=== PATIENT | female | born 1945 | race Caucasian/White ===

== ENCOUNTER → 2017-06-01 | Outpatient (CLI) | payer OTHER ==
--- NOTE | ~2017-06-01 | 2DMMODE ---
[facility] [address] [place] [address] 2 D/M-MODE ECHOCARDIOGRAM Name: NATHALIE STEWART Room #: REG [facility] [id number] Admission: 06/01/17 Attend Phys: Karla Porras Discharge: Date of : 43 Date of Service: 06/01/17 1207 Report #: [id number] THIS REPORT FOR: //name// APPROVED REPORT Study performed: 06/01/2017 10:06:29 EXAM: Comprehensive 2D, Doppler, and color-flow Echocardiogram Patient Location: Out-Patient Status: routine Other Information Study Quality: Good Indications Hypertension/HDD 2D Dimensions RVDd: 34.47 mm LVEF(%): 77.11 (>50%) IVSd: 9.90 (7-11mm) LVOT Diam: 18.25 (18-24mm) LVDd: 46.05 mm PWd: 9.53 (7-11mm) Ascending Ao: 37.25 (22-36mm) LVDs: 25.00 (25-40mm) Aortic Root: 27.81 mm Maxwell's LVEF: 77.11 % Volumes Left Atrial Volume (Systole) Single Plane 4CH: 44.99 mL Single Plane 2CH: 54.25 mL LA ESV Index: 34.00 mL/m2 Aortic Valve AoV Peak Jovan.: 1.38 m/s AO Peak Gr.: 7.62 mmHg LVOT Max P.37 mmHg LVOT Max V: 1.05 m/s BEV Vmax: 1.98 cm2 Mitral Valve E/A Ratio: 0.7 MV Decel. Time: 221.47 ms MV E Max Jovan.: 0.59 m/s MV A Jovan.: 0.82 m/s MV PHT: 64.23 ms IVRT: 115.34 ms [facility] [place] [address] 2 D/M-MODE ECHOCARDIOGRAM Name: NATHALIE STEWART Room #: [facility] Ivy#: [id number] Admission: 06/01/17 Attend Phys: Karla Porras Discharge: Date of : 43 Date of Service: 06/01/17 1207 Report #: [id number] Pulmonary Valve PV Peak Jovan.: 0.75 m/s PV Peak Gr.: 2.24 mmHg Pulmonary Vein P Vein S: 0.52 m/s P Vein A: 0.31 m/s P Vein D: 0.40 m/s P Vein A Dur.: 124.6 msec P Vein S/D Ratio: 1.30 Tricuspid Valve TR Peak Jovan.: 2.58 m/s RAP Estimate: 5.00 mmHg TR Peak Gr.: 26.53 mmHg PA Pressure: 32.00 mmHg Left Ventricle The left ventricle is normal size. There is normal LV segmental wall motion. There is normal left ventricular wall thickness. The left ventricular systolic function is normal. The left ventricular ejection fraction is within the normal range. LVEF is 60-65%. Grade I - abnormal relaxation pattern. Right Ventricle The right ventricle is normal size. The right ventricular systolic function is normal. Atria The left atrium size is normal. The right atrium size is normal. Aortic Valve The aortic valve is normal in structure. Trace aortic regurgitation. There is no aortic valvular stenosis. Mitral Valve The mitral valve is normal in structure. Trace to mild mitral regurgitation. No evidence of mitral valve stenosis. Tricuspid Valve The tricuspid valve is normal in structure. There is trace to mild tricuspid regurgitation. The right atrial pressure is estimated at 5 mmHg. There is mild pulmonary hypertension with an estimated PAP of 32 mmHg. Pulmonic Valve The pulmonary valve is normal in structure. Trace to mild pulmonic regurgitation. [facility] [address] [place] [address] 2 D/M-MODE ECHOCARDIOGRAM Name: NATHALIE STEWART Evelyn Room #: MICHAEL Haynes#: [id number] Admission: 06/01/17 Attend Phys: Karla Porras Discharge: Date of : 43 Date of Service: 06/01/17 1207 Report #: [id number] Great Vessels The aortic root is normal in size. The ascending aorta is normal in size. IVC is normal in size and collapses >50% with inspiration. Pericardium There is no pericardial effusion. <Conclusion> The left ventricle is normal size. LVEF is 60-65%. The aortic valve is normal in structure. Trace aortic regurgitation. The mitral valve is normal in structure. Trace to mild mitral regurgitation. The tricuspid valve is normal in structure. There is trace to mild tricuspid regurgitation. The right atrial pressure is estimated at 5 mmHg. There is mild pulmonary hypertension with an estimated PAP of 32 mmHg. The pulmonary valve is normal in structure. Trace to mild pulmonic regurgitation. <ELECTRONICALLY SIGNED> By: Jeff Fam MD 06/01/17 1207 06 06 Jeff Fam MD /INF
== END ==
LOC: CV 09:21
DX: I10 Essential (primary) hypertension (principal)

== ENCOUNTER → 2021-04-15 | Outpatient (CLI) | payer OTHER ==
--- NOTE | 2021-04-15 11:31 | 2DMMODE ---
[facility] [place] [address] 2 D/M-MODE ECHOCARDIOGRAM Name: NATHALIE STEWART [facility]: [facility] [id number] Admission: 04/15/21 Attend Phys: Karla Porras MD Discharge: Date of : 43 Report #: [id number] THIS REPORT FOR: cc: Karla Porras MD, Constance M. MD Santiago, Patrick MD [facility] ~ APPROVED REPORT Study performed: 04/15/2021 09:48:32 EXAM: Comprehensive 2D, Doppler, and color-flow Echocardiogram Patient Location: Out-Patient Status: routine BSA: 1.65 HR: 58 bpm Rhythm: NSR Other Information Study Quality: Good Risk Factors: Cardiac Risk Factors: HTN Indications Hypotension Hypertension/HDD 2D Dimensions IVSd: 11.71 (7-11mm) LVOT Diam: 19.87 (18-24mm) LVDd: 40.15 mm PWd: 9.92 (7-11mm) Ascending Ao: 39.23 (22-36mm) LVDs: 27.43 (25-40mm) Left Atrium: 28.67 (27-40mm) Aortic Root: 25.21 mm Volumes Left Atrial Volume (Systole) Single Plane 4CH: 26.23 mL Single Plane 2CH: 31.21 mL Biplane LA Volume: 32.00 mL LA ESV Index: 20.00 mL/m2 Aortic Valve [facility] [address] [place] [address] 2 D/M-MODE ECHOCARDIOGRAM Name: NATHALIE STEWART Evelyn Room #: [facility]#: [id number] Admission: 04/15/21 Attend Phys: Karla Porras Discharge: Date of : 43 Report #: [id number] AoV Peak Joavn.: 1.35 m/s AO Peak Gr.: 7.45 mmHg LVOT Max P.94 mmHg LVOT Max V: 0.99 m/s BEV Vmax: 2.28 cm2 AI Vmax: 2.59 m/s AI Story: 0.45 m/s2 AI PHT: 1661.25 ms Mitral Valve E/A Ratio: 0.8 MV Decel. Time: 207.97 ms MV E Max Jovan.: 0.70 m/s MV A Jovan.: 0.83 m/s MV PHT: 60.31 ms MVA (PHT): 2.78 cm2 IVRT: 115.34 ms Pulmonary Valve PV Peak Jovan.: 0.90 m/s PV Peak Gr.: 3.25 mmHg HI End Vmax: 0.89 m/s Pulmonary Vein P Vein S: 0.52 m/s P Vein A: 0.22 m/s P Vein D: 0.36 m/s P Vein A Dur.: 101.5 msec P Vein S/D Ratio: 1.44 Tricuspid Valve TR Peak Jovan.: 2.54 m/s RAP Estimate: 7.00 mmHg TR Peak Gr.: 25.73 mmHg RVSP: 33.00 mmHg Left Ventricle The left ventricle is normal size. There is normal LV segmental wall motion. There is normal left ventricular wall thickness. Left ventricular systolic function is normal. The left ventricular ejection fraction is within the normal range. LVEF is 60-65%. The left ventricular diastolic function is normal. Right Ventricle The right ventricle is normal size. The right ventricular systolic function is normal. Atria The left atrium size is normal. The right atrium size is normal. Aortic Valve [facility] [address] [place] [address] 2 D/M-MODE ECHOCARDIOGRAM Name: NATHALIE STEWART Evelyn Room #: [facility] [id number] Admission: 04/15/21 Attend Phys: Karla Porras Discharge: Date of : 43 Report #: [id number] The aortic valve is normal in structure. Trace aortic regurgitation. There is no aortic valvular stenosis. Mitral Valve The mitral valve is normal in structure. Trace mitral regurgitation. No evidence of mitral valve stenosis. Tricuspid Valve The tricuspid valve is normal in structure. Mild tricuspid regurgitation. Mild pulmonary hypertension. PAP is 33 mmHg. Pulmonic Valve The pulmonary valve is normal in structure. Mild pulmonic regurgitation. Great Vessels The aortic root is normal in size. IVC is normal in size and collapses >50% with inspiration. Pericardium There is no pericardial effusion. There is no pleural effusion. <Conclusion> Normal left ventricle size/wall thickness Ejection fraction 60% Normal right ventricular size/function Normal atrial size Color-flow Doppler study was performed of the aortic/mitral/tricuspid/pulmonary valve Trace aortic/mitral valve insufficiency Mild tricuspid valve insufficiency Pulmonary systolic pressure estimated 33 mmHg No pericardial effusion Normal aortic root size. <ELECTRONICALLY SIGNED> By: Vishal Blackwell MD, FACC 04/15/21 1131 1131 113 Vishal Blackwell MD, FACC /INF
== END ==
LOC: CV 09:32 → ULTRA 09:49
PROVIDERS: ATTEND Family Medicine
DX: I65.23 Occlusion and stenosis of bilateral carotid arteries (principal); I08.8 Other rheumatic multiple valve diseases; I27.20 Pulmonary hypertension, unspecified; I95.1 Orthostatic hypotension; R10.13 Epigastric pain

== ENCOUNTER → 2021-05-21 | Outpatient (CLI) | payer OTHER ==
--- NOTE | 2021-05-23 08:28 | P ---
[facility] [place] [place] [address] PROCEDURE REPORT Name: NATHALIE STEWART Room #: REG JOANNENat Haynes#: [id number] Admission: 05/21/21 Attend Phys: John Solis Discharge: Date of : 43 Report #: [id number] THIS REPORT FOR: cc: Karla Porras MD,John Mullen MD, MD ~ DOC #: [id number] cc: MD John Gaffney MD DATE OF SERVICE: 05/21/2021 PROCEDURE PERFORMED: Upper endoscopy with biopsies. HISTORY OF PRESENT ILLNESS: The patient is a 75-year-old female who reports episodes intermittently of abdominal pain, during these episodes apparently was hypotensive. These episodes can last 1-2 hours, recently switched her antihypertensive medication around and her symptoms have improved somewhat. She underwent a CT scan of the abdomen and pelvis in October that showed possible mild gastritis. 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 The patient denies predictably having pain after eating. She denies any nausea, vomiting or dysphagia. She is on Prilosec on a daily basis. She has a history of colon polyps. Plan is for EGD and colonoscopy today. DESCRIPTION OF PROCEDURE: The risks and benefits of the procedure were explained to the patient, those risks including but not limited to bleeding, perforation and the risk of sedation. She understood these risks and gave informed consent. Sedation was given using propofol per anesthesia. Next, using a standard Olympus upper endoscope, the scope was placed in the patient's mouth and advanced under direct vision through the esophagus, stomach and into the second portion of the duodenum. The larynx was normal in appearance. The esophagus was normal throughout. The GE junction was normal. Overall, the gastric mucosa was normal in the fundus and body and mild erythema was noted in the gastric antrum. Biopsies were obtained to rule out H. pylori. The pylorus was normal and patent. The duodenal bulb, first and second portion were all normal. Random biopsies were obtained to rule out the possibility of celiac sprue. The scope was then withdrawn and the procedure terminated. The patient tolerated the procedure well. IMPRESSION: 1. Mild gastritis. 2. Otherwise, normal upper endoscopy. RECOMMENDATIONS: 1. Await biopsy results. 2. Continue daily PPI therapy. [address] [address] PROCEDURE REPORT Name: PATNATHALIE ANN Room #: REG CLI Ivy#: [id number] Admission: 05/21/21 Attend Phys: John Solis Discharge: Date of : 43 Report #: [id number] 3. We will proceed with colonoscopy next day. Thank you for allowing me to participate in her care. John Akers MD CCM/LORENE <ELECTRONICALLY SIGNED> By: John Akers MD 05/23/21 0828 1938 John Akers MD /nt
--- NOTE | 2021-05-23 08:28 | P ---
[facility] [place] [address] [place] [address] PROCEDURE REPORT Name: NATHALIE STEWART Room #: REG NESTOR Haynes#: [id number] Admission: 05/21/21 Attend Phys: John Solis Discharge: Date of : 43 Report #: [id number] THIS REPORT FOR: cc: Karla Porras MD, Constance M. MD McElhinney, Christian C. MD ~ DOC #: [id number] cc: MD John Gaffney MD DATE OF SERVICE: 05/21/2021 PROCEDURE PERFORMED: Colonoscopy. HISTORY OF PRESENT ILLNESS: The patient is a 75-year-old female with a history of colon polyps. Reports a history of intermittent mid-epigastric abdominal pain, not correlated with food. There is a correlation in drop in blood pressure during these episodes. She has had a recent switch from her blood pressure medications, which may have been improving her symptoms. Plan is for colonoscopy. DESCRIPTION OF PROCEDURE: The risks and benefits of the procedure were explained to the patient, those risks including but not limited to bleeding, perforation and the risk of sedation. She understood these risks and gave informed consent. Sedation was given using propofol per Anesthesia. Next, a digital rectal exam was initially performed, which was normal. Next, using a standard Olympus colonoscope, the scope was placed in the patient's anus and advanced under direct vision into the distal sigmoid colon, which was very tight and it was very tortuous. I was unable to pass the regular scope through this area. Therefore, the standard colonoscope was removed and a pediatric colonoscope was then used. I was able to advance the scope through the sigmoid colon with the pediatric scope. The scope was advanced under direct vision to the cecum. The overall prep was excellent. The cecum and ileocecal valve were normal in appearance. Ascending, transverse, descending and sigmoid colon were normal other than the sigmoid colon being tortuous. The rectal mucosa was normal. On retroflexion, no abnormalities were noted. The scope was then withdrawn and the procedure terminated. The patient tolerated the procedure well. IMPRESSION: Tortuous sigmoid colon, otherwise normal colonoscopy. RECOMMENDATIONS: Etiology of the patient's intermittent abdominal pain is unclear. There does appear to be a correlation with hypotension. I do not know if hypotension is causing the episode. However, recently she has changed the timing of her blood pressure medication and it seems to have improved her symptoms. Another thing to consider which I discussed with the patient is she [address] [address] PROCEDURE REPORT Name: NATHALIE STEWART KYLER Room #: [facility] [id number] Admission: 05/21/21 Attend Phys: John Solis Discharge: Date of : 43 Report #: [id number] scan of the abdomen showing plaquing near the origin of her celiac and SMA; however, she denies abdominal pain after eating, which is typically noted with mesenteric ischemia. At this point, we would continue to observe. If she has recurrent symptoms, may need to consider further workup of her mesenteric vessels. Thank you for allowing me to participate in her care. John Akers MD CCM/JERICHO <ELECTRONICALLY SIGNED> By: John Akers MD 05/23/2128 33 John Akers MD /ashley
--- NOTE | 2021-05-26 18:06 | PATH ---
[facility] [place] [address] PATHOLOGY RPT PROCEDURE Name: CHRISTIANDIANNE STOUT Room #: REG NESTOR Joya.#: [id number] Admission: 05/21/21 Date of : 43 Discharge: Report #: [id number] Path Case #: [id number] [facility] Accession Number: [id number] . 01 Material submitted: . PART A: duodenum - DUODENAL BIOPSY R/O SPRUE R/O ABD PAIN PART B: gastrointestinal site - GASTRITIS BIOPSY R/O H. PYLORI . 01 Clinical history: . EGD/COLONOSCOPY EPIGASTRIC PAIN/HISTORY OF POLYPS . 02 Diagnosis: A. Small bowel mucosa, duodenum, endoscopic biopsy: - No diagnostic abnormalities. - Negative for villous blunting or increase in intraepithelial lymphocytes. . B. Gastric mucosa, gastritis rule out H. pylori, endoscopic biopsy: - Mild reactive gastropathy. - Negative for intestinal metaplasia or atrophy. - Negative for Helicobacter pylori (properly controlled immunohistochemical stain performed). (IUV/db; 05/26/2021) LBQ 05/26/2021 1510 Local . 02 Electronically signed: . Clotilde Mazariegos MD, Pathologist NPI- [id number] . 01 Gross description: . A. The specimen is received in formalin, labeled "Dianne Ball, duodenal BX". Received are 3 segments of pale sevilla tissue ranging in size from 0.2 to 0.5 cm in maximum dimensions. The specimen is submitted entirely in cassette A1. . B. The specimen is received in formalin, labeled " Dianne Ball , gastritis BX ". Received are 3 segments of pale sevilla tissue ranging in size from 0.3 to 0.6 cm in maximum dimensions. The specimen is submitted entirely in cassette B1.([facility]; 05/23/2021) [facility] 05/23/2021 1425 Local . 02 Pathologist provided ICD-10: K31.9, R10.13, Z86.010 . 02 CPT . 352652, [id number], [id number] [place] [address] PATHOLOGY RPT PROCEDURE Name: DIANNE BALL KYLER Room #: REG CLNat Haynes#: [id number] Admission: 05/21/21 Date of : 43 Discharge: Report #: [id number] Path Case #: [id number] Specimen Comment: A courtesy copy of this report has been sent to [phone], [phone] Specimen Comment: [id number] Specimen Comment: Report sent to / DR WILSON Performed at: [address], [place] [id number] MD Bebo Corral MD Phone: [phone] Performed at: [address] [id number] MD Clotilde Mazariegos MD Phone: [phone]
== END | disposition home or self-care (01) ==
LOC: GI 07:43
PROVIDERS: ATTEND Specialist
DX: Z12.11 Encounter for screening for malignant neoplasm of colon (principal); Z86.010 Personal history of colon polyps; K63.89 Other specified diseases of intestine; K31.9 Disease of stomach and duodenum, unspecified; K29.70 Gastritis, unspecified, without bleeding; Z98.890 Other specified postprocedural states; Z79.899 Other long term (current) drug therapy; Z88.8 Allergy status to other drugs, medicaments and biological substances
CPT/HCPCS: 62110; 62900